=== PATIENT | male | born 1945 | race Caucasian/White ===

== ENCOUNTER 2024-04-01 21:57 | Emergency (ER) | payer MEDICARE, OTHER, SELFPAY ==
[2024-04-01 21:59] VITALS: BP 148/91
--- NOTE | 2024-04-01 22:30 | ED.GENMED ---
History of Present Illness
General
Chief Complaint: Musculo-Skeletal Complaint
Time Seen by Provider: 04/01/24 22:29
History of Present Illness
History of Present Illness:
TIME OF INITIAL ENCOUNTER: 10:30 PM
HPI: The patient presents due to right axillary pain. About a year ago with similar symptoms, he was told he has 'lump near his spine' he was offered surgery but overall improved with physical therapy. His pain recently recurred and yesterday he
tried Vicodin and then tried Percocet today. The patient does not have much pain at rest on the stretcher however when he raises the arm the pain dramatically worsens. He says he has trouble using the right hand due to weakness earlier but
currently it is improved spontaneously.
EXAM:
GENERAL: Well appearing but intermittently in distress when he moves the right upper extremity at the shoulder
HEENT: Moist oral mucosa
NEUROLOGIC: Excellent strength all extremities, no obvious coordination deficits
PSYCHIATRIC: Appropriate mental status, normal insight and judgement
EXTREMITIES: There is no bony tenderness at the proximal right humerus, clavicle, AC joint, there is no tenderness of the right trapezius, there is some vague discomfort to palpation at the axillary region but no palpable mass
SKIN: No rash, no lesions
NUMBER AND COMPLEXITY OF PROBLEMS ADDRESSED AT THE ENCOUNTER
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
� Acute Exacerbation and/or Progression of Chronic Illness: This is an acute problem
� Differential Diagnosis includes: Exacerbation of large foraminal disc protrusion, peripheral neuropathy, no evidence of arterial compromise based on physical examination, no evidence for CVA on exam
AMOUNT AND/OR COMPLEXITY OF DATA TO BE REVIEWED AND ANALYZED
� I performed an independent evaluation of and my interpretation is:
EKG:
CT:
X-rays:
Laboratory Studies:
Other:
� Review of other/old records: I reviewed the old records as summarized above
� Clinical information was obtained by an independent historian: None needed
� Prescriptions/Medications Considered but not given:
� Further testing considered but not performed: No clear indication for imaging at this time through the emergency department, his distal strength of the right upper extremity is excellent
RISK OF COMPLICATIONS AND/OR MORBIDITY OR MORTALITY OF PATIENT MANAGEMENT
� Social determinants of health affecting care: Lives at home
� Discussion with other providers:
� Escalation of care including admission/observation vs risk of discharge considered: Strongly suspect cervical radiculopathy. MRI from last year shows large disc protrusion at C7/T1 and he has seen Dr. Donohue and Dr. Weldon.
He elected physical therapy which has helped. He states he cannot do the physical therapy currently when the pain is severe. Will add gabapentin and needs to follow-up with orthopedics.
ANY OTHER UPDATES:
Past History
Past History
ED Past Medical History: CAD, HTN, Hypercholesterolemia, NIDDM, Other and Other
ED Past Surgical History: Bowel resection and Other (Colectomy with ileostomy)
Social History
Tobacco: Non-smoker
Alcohol: None
Drug: None
Personal: Single
Living: alone
Employment: Retired
Family History
Family History: Other (Noncontributory)
Phy Exam
Physical Exam
Physical Exam:
See HPI
Course
Orders/Labs/Results
Orders:
Orders
04/01/24 22:42
Sling Right-Treatment ONCE
Vital Signs
Initial and Last Documented VS:
Initial Vital Signs
Temp Pulse Resp BP Pulse Ox
98.2 F 83 18 148/91 98
04/01/24 21:59 04/01/24 21:59 04/01/24 21:59 04/01/24 21:59 04/01/24 21:59
Last Documented Vital Signs
Temp Pulse Resp BP Pulse Ox
98.2 F 83 18 148/91 98
04/01/24 21:59 04/01/24 21:59 04/01/24 21:59 04/01/24 21:59 04/01/24 21:59
*Critical Care Note
Total Time (30-74mins, 75-104mins- exclusive of procedures): Not Applicable
ED Attending Note
-
Portions of this chart may have been created with voice recognition software.� Occasional wrong word or��sound alike� substitutions may have occurred due to the inherent limitations of voice recognition software.
Discharge Plan
Departure
Patient Disposition: Home (Routine Discharge)
Date of Disposition: 04/01/24
Time of Disposition: 23:13
Patient with high blood pressure during this ER visit?: Yes
Discharge Problem:
Cervical radiculopathy
Instructions: Radiculopathy (DC), BLOOD PRESSURE
Prescriptions:
New
gabapentin 300 mg capsule
300 mg PO TID Qty: 21 0RF
No Action
latanoprost 1 DROP drops
1 drp BOTH EYES DAILY@0000
brimonidine-timolol [Combigan] 1 DROP drops
1 drp BOTH EYES DAILY@1200
multivitamin with folic acid [Tab-A-Iain] 1 TABLET tablet
1 tab PO DAILY@1200
metformin 500 MG tablet
500 mg PO BID@0000,1200
isosorbide mononitrate 30 MG tablet extended release 24 hr
30 mg PO DAILY@1200
tamsulosin 0.4 MG capsule
0.4 mg PO DAILY@0000
allopurinol 300 MG tablet
300 mg PO DAILY@1200
atorvastatin 40 MG tablet
40 mg PO DAILY@0000
clopidogrel 75 MG tablet
75 mg PO DAILY@1200
aspirin 81 MG tablet,chewable
81 mg PO DAILY@1200
cephalexin 500 MG capsule
500 mg PO QID Qty: 30 0RF
amlodipine 2.5 MG tablet
2.5 mg PO DAILY Qty: 30 0RF
ondansetron 4 MG tablet,disintegrating
4 mg PO TIDPRN PRN (Reason: nausea/vomiting) Qty: 8 0RF
hydrocodone-acetaminophen 1 TABLET tablet
1 tab PO Q4HPRN PRN (Reason: pain) Qty: 8 0RF
cefdinir 300 mg capsule
300 mg PO BID Qty: 14 0RF
Referrals:
Yaw Weldon, DO [Non-Admitting Privileges] - Follow up in 2-3 days
UNKNOWN - PT DOES,NOT KNOW [Family Provider] -
Activity Restrictions/Additional Instructions:
I sent a prescription for gabapentin to your pharmacy. Is listed as 3 times a day however I recommend only using 1 tomorrow and 2 the following day then 3 times a day. Follow-up with Dr. Weldon. Return here if worse or other concerns. Review of
your old records show that you have a large disc protrusion at C7/T1 based on the MRI from late last year. Do not take narcotic analgesia at this time Mara take gabapentin.
Discharge Date and Time
Print Language: BENINESE
[2024-04-01 23:44] VITALS: BMI 31.3
[2024-04-01 23:45] VITALS: BP 147/78
== END 2024-04-01 23:58 | disposition home or self-care (01) ==
LOC: EMR 21:57
PROVIDERS: EMERGENCY PHYSICIAN Emergency Medicine
DX: M54.12 Radiculopathy, cervical region (principal); I10 Essential (primary) hypertension
CPT/HCPCS: 99283

== ENCOUNTER → 2024-11-17 08:19 | Outpatient (REF) | payer MEDICARE, OTHER, SELFPAY | LOC: EMG 08:19 | PROVIDERS: ATTENDING PHYSICIAN Physical Medicine & Rehabilitation; FAMILY PHYSICIAN Internal Medicine | DX: R20.0 Anesthesia of skin (principal); M54.12 Radiculopathy, cervical region | CPT/HCPCS: 95886; 95909 ==

== ENCOUNTER → 2025-01-21 06:31 | Outpatient (REF) | payer MEDICARE, OTHER, SELFPAY | LOC: MRI 06:31 | PROVIDERS: ATTENDING PHYSICIAN Physician Assistant; FAMILY PHYSICIAN Internal Medicine | DX: M54.12 Radiculopathy, cervical region (principal); M50.20 Other cervical disc displacement, unspecified cervical region | CPT/HCPCS: 72141 ==